=== PATIENT | male | born 1960 | race Caucasian/White ===

== ENCOUNTER 2017-03-16 10:41 | Emergency (ER) | payer BC ==
[~2017-03-16] VITALS: Ht 182.9 cm; Wt 100.0 kg
[2017-03-16 10:44] VITALS: BP 168/79; PULSE 65; TEMP 98.4
[2017-03-16] MEDS ORDERED: PERCOCET 325 MG1 TA2 PO (11:06)
[2017-03-16] MEDS ORDERED: AMOXICILLIN 8751 TAB PO (11:06)
== END 2017-03-16 11:25 | disposition home or self-care (01) ==
LOC: COL.ER 10:41
DX: K02.9 Dental caries, unspecified (principal)